=== PATIENT | male | born 1990 | race Caucasian/White ===

== ENCOUNTER 2016-11-03 19:47 | Emergency (ER) | payer OTHER ==
[~2016-11-03] VITALS: Ht 167.6 cm; Wt 74.8 kg
--- NOTE | 2016-11-03 20:18 | PHYS DOC ---
Adult General Chief Complaint Chief Complaint: LACERATION/AVULSION HPI HPI 18-year-old otherwise healthy male presents emergency department after injuring his left hand. He is right-hand dominant. He was using a pocket knife when he slipped and cut his second phalanx on the volar aspect. Onset today. Location left hand. Duration constant. No alleviating or exacerbating factors. The patient placed gauze on the wound and came in for evaluation and care. Review of systems is negative for wrist pain and shoulder pain chest pain or any other injuries. All other review of systems is negative unless otherwise noted in history of present illness. Pertinent physical exam findings: The patient's left hand shows a deep laceration to the volar aspect of his second phalanx in between the distal and proximal interphalangeal joints area the patient is unable to flex his finger. Upon inspection of the wound there is pulsatile bleeding. 2 second cap refill distally with mildly decreased sensation on both the ulnar and radial aspect of the finger. Otherwise the wrist and elbow are nontender with normal range of motion. ED course: 18-year-old male sustaining a severe laceration to his left second phalanx. Given the depth and the arterial bleeding, the patient was transferred to the [facility] for further evaluation and care from hand surgery which is unavailable at our hospital system. Dr. Price is the accepting physician. Transferred to the ED at . Review of Systems Review of Systems SEE ABOVE. Current Medications Current Medications Current Medications Medications (Trade) Dose Ordered Sig/Jennifer Start Time Stop Time Status Last Admin Dose Admin Diphtheria/ Tetanus/Acell Pertussis (Boostrix) 0.5 ml ONCE ONCE 11/03/16 20:30 11/03/16 20:31 DC Fentanyl Citrate (Fentanyl 2ml Vial) 25 mcg 1X PRN PRN 11/03/16 20:30 11/03/16 21:06 25 MCG Lidocaine/Sodium Bicarbonate (Buffered Lidocaine 1%) 20 ml 1X ONCE 11/03/16 20:30 11/03/16 20:31 DC Allergies Allergies Allergies Coded Allergies Type Severity Reaction Last Updated Verified No Known Drug Allergies 11/03/16 No Physical Exam Physical Exam Constitutional: Well developed, well nourished, no acute distress, non-toxic appearance. HENT: Normocephalic, atraumatic, bilateral external ears normal, oropharynx moist, no oral exudates, nose normal. [] Eyes: PERRLA, EOMI, conjunctiva normal, no discharge. [] Neck: Normal range of motion, no tenderness, supple, no stridor. [] Cardiovascular:Heart rate regular rhythm, no murmur [] Lungs & Thorax: Bilateral breath sounds clear to auscultation [] Abdomen: Bowel sounds normal, soft, no tenderness, no masses, no pulsatile masses. [] Skin: Warm, dry, no erythema, no rash. [] Back: No tenderness, no CVA tenderness. Extremities: see above Neurologic: Alert and oriented X 3, normal motor function, normal sensory function, no focal deficits noted. [] Psychologic: Affect normal, judgement normal, mood normal. [] Current Patient Data Vital Signs Vital Signs Date Time Temp Pulse Resp B/P (MAP) Pulse Ox O2 Delivery O2 Flow Rate FiO2 11/03/16 20:00 98.2 92 16 166/112 (130) 96 Room Air 98.2 EKG EKG [] Radiology/Procedures Radiology/Procedures [] Course & Med Decision Making Course & Med Decision Making Pertinent Labs and Imaging studies reviewed. (See chart for details) [] Dragon Disclaimer Dragon Disclaimer This electronic medical record was generated, in whole or in part, using a voice recognition dictation system. Departure Departure Impression: Primary Impression: Laceration involving tendon Additional Impression: Hand laceration Disposition: 02 TRANSFER [facility] ([facility]) Condition: STABLE Referrals: NO PCP (PCP) Problem Qualifiers BRENNAN DELUNA MD Nov 03, 2016 20:18
[2016-11-03] MEDS ORDERED: fentaNYL PF VIAL 100 MCG/2 ML VIAL IV PRN (20:30)
[2016-11-03] MEDS ORDERED: LIDOCAINE 1% / SOD BICARB 8.4% 20 ML VIAL. IJ ONE (20:30)
[2016-11-03] MEDS ORDERED: DIPHTH,PERTUSS(ACELL),TET TOX 0.5 ML DISP.SYRIN. VAX IM ONE (20:30)
[2016-11-03 21:17] VITALS: BP 129/76
== END 2016-11-03 21:45 | disposition short-term general hospital (02) ==
LOC: ER 19:47
DX: S66.922A Laceration of unspecified muscle, fascia and tendon at wrist and hand level, left hand, initial encounter (principal); W26.0XXA Contact with knife, initial encounter; Y93.89 Activity, other specified; Y92.89 Other specified places as the place of occurrence of the external cause; Y99.8 Other external cause status
CPT/HCPCS: 96374; 99285; J3010